=== PATIENT | male | born 1990 ===

== ENCOUNTER 2017-06-29 12:38 | Emergency (ER) | payer MEDICAID, OTHER ==
[~2017-06-29] VITALS: Ht 182.9 cm; Wt 79.4 kg
[2017-06-29] MEDS ORDERED: ACETAMINOPHEN ES 500 MG TABLET PO ONE (14:00)
[2017-06-29] MEDS ORDERED: ACETAMINOPHEN ES 500 MG TABLET ONE (14:11)
--- NOTE | 2017-06-29 15:15 | NUR ---
PO CHALLENGE DONE.
--- NOTE | 2017-06-29 15:26 | NUR ---
Patient discharged to home in stable conditon. Written and verbal after care instructions given. Patient verbalizes understanding of instructions.
--- NOTE | 2017-06-29 15:29 | NUR ---
PATIENT TOLERATED PO FLUIDS. NO N/V. TEMP 100.6
== END 2017-06-29 15:30 | disposition home or self-care (01) ==
LOC: ER 12:38
DX: B34.9 Viral infection, unspecified (principal); G43.909 Migraine, unspecified, not intractable, without status migrainosus; Z88.5 Allergy status to narcotic agent
CPT/HCPCS: 99282; A4663